=== PATIENT | female | born 1990 | race Caucasian/White ===

== ENCOUNTER 2019-05-13 18:25 | Emergency (ER) | payer MEDICAID ==
[~2019-05-13] VITALS: Ht 162.6 cm; Wt 44.5 kg
--- NOTE | 2019-05-13 19:21 | NUR ---
pt refusing labs believes it will be cheaper to go [facility] for them roberta parekh notified.
--- NOTE | 2019-05-13 19:23 | NUR ---
lab to bedside
[2019-05-13] MEDS ORDERED: SULF1TAB49 PO (19:26)
--- NOTE | 2019-05-13 19:31 | NUR ---
pt asking her boyfriend to take a walk when discussed blood draw and purpose. denies that lab was here denies that lab attmepted to draw
--- NOTE | 2019-05-13 19:40 | NUR ---
PT ASKING BOYFRIEND TO LEAVE THE ROOM EACH TIME SHE IS QUESTIONED ABOUT HER PAST AND CURRENT MEDICAL HX. PT MOVINH AROUND ALOT/ RAPID SPEECH, STATES THAT SHE THINKS SHE "HAS THE SORES BC OF MALNURISHMENT. "PT VERBALIZED SHE "HAS BEEN EATING " SO MAYBE THATS NOT IT , PT APPREAS THIN , DOESNT WANT TO TAKE OFF MASK WHEN ASKED, AND STILL REFUSES ANY LABS . PT STATES SHE WILL GO TO THE CLINIC IN THE AM TO RECEIVE CARE, SHE DOES NOT WANT TO INCURE COSTS FOR LABS. PT ASKING TO BE DISCHARGED..
[2019-05-13 20:01] VITALS: BP 114/76
== END 2019-05-13 19:40 | disposition home or self-care (01) ==
LOC: EDSEX 18:27 → ER 18:27
DX: R21 Rash and other nonspecific skin eruption (principal); F12.90 Cannabis use, unspecified, uncomplicated; F15.90 Other stimulant use, unspecified, uncomplicated
CPT/HCPCS: 99283